=== PATIENT | female | born 1990 | race American Indian/Alaskan Native ===

== ENCOUNTER 2021-09-14 15:56 | Outpatient (CLI) | payer OTHER ==
--- NOTE | 2021-09-18 14:36 | Ultrasound Report ---
EXAMINATION: Bilateral Complete Breast Ultrasound, 09/18/2021 INDICATION: History of fibrocystic breast disease. The patient does not report any new or focal breast symptoms. COMPARISON: None. FINDINGS: Complete sonographic evaluation of all 4 quadrants and retroareolar region was performed. Right breast: Sonographic evaluation of the right breast demonstrates no evidence of suspicious solid mass or shadowing. Right axillary lymph nodes appear normal. Left breast: Sonographic evaluation of the left breast demonstrates no evidence of suspicious solid m ass or shadowing. Left axillary lymph nodes appear normal. IMPRESSION: Follow up recommendation: Clinical exam BI-RADS Category 1: Negative. A normal or "negative" report should not preclude biopsy or follow-up of a clinically suspicious find ing. Signer Name: Casie Payan MD Signed: 09/18/2021 2:32 PM Workstation Name: [id number]
== END 2021-09-14 15:57 | disposition home or self-care (01) ==
LOC: SPVWC 15:56
PROVIDERS: ATTEND Obstetrics & Gynecology
DX: N60.19 Diffuse cystic mastopathy of unspecified breast (principal)